=== PATIENT | female | born 1990 | race Two or more races ===

== ENCOUNTER → 2023-11-04 08:06 | Outpatient (CLI) | payer OTHER ==
[2023-11-04 09:10] LABS: HEMATOCRIT 32.1 % (36.0-45.00); HEMOGLOBIN 10.6 g/dL (12.0-15.00); MEAN CELL VOLUME 74.2 fL (80.00-100.00); MEAN CORPUSCULAR HEMOGLOBIN 24.5 pg (27.00-32.0); PLATELET COUNT 364 K/uL (150-450); RED BLOOD COUNT 4.33 M/uL (4.00-6.00); RED CELL DISTRIBUTION WIDTH 15.1 % (11.5-14.5)
[2023-11-04 09:15] LABS: PH,URINE 7.5 (5.0-8.0); URINE APPEARANCE Cloudy; URINE BACTERIA 3770.8 uL (0.0-1933); URINE BILIRRUBIN Negative (NEGATIVE); URINE BLOOD Negative; URINE COLOR Yellow; URINE EPITHELIAL CELLS 58.5 uL (0.0-38.8); URINE GLUCOSE Negative (NEGATIVE); URINE LEUKOCYTE Small; URINE NITRATE Negative; URINE PROTEIN Trace (NEGATIVE); URINE RBC 54.8 uL (0.0-20.8); URINE UROBILINOGEN 0.2 E.U./dl; URINE WBC 12.2 uL (0.0-23.2)
[2023-11-04 09:28] LABS: INR 1.04; PROTHROMBIN TIME 10.9 SECONDS (9.0-11.5)
[2023-11-04 09:46] LABS: ALBUMIN 3.5 gm/dL (3.4-5.0); BILIRUBIN TOTAL 0.35 mg/dL (0.3-1.2); CALCIUM 8.9 mg/dL (8.5-10.1); CREATININE SERUM 0.49 mg/dL (0.55-1.02); GFR 147.3; GLOBULINA 3.8 G/DL (2.4-3.5); POTASSIUM 3.78 mEq/L (3.5-5.1); TOTAL PROTEIN 7.3 gm/dL (6.4-8.2); TSH 2.34 uIU/mL (0.358-3.74)
[2023-11-04 12:20] LABS: RH POSITIVE
[2023-11-05 07:45] LABS: HEPATITIS C VIRUS ANTIBODY NON REACTIVE; RUBELLA IGG < 0.90
[2023-11-05 15:41] LABS: RAPID PLASMA REAGIN NONREACTIVE BY RPR (NONREACTIVE)
[2023-11-06 08:05] LABS: HSV I IGG TYPE SPECIFIC < 0.91; RUBELLA IGM <20.0
== END | disposition home or self-care (01) ==
LOC: LAB 08:06
PROVIDERS: ATTEND Obstetrics & Gynecology
DX: Z34.01 Encounter for supervision of normal first pregnancy, first trimester (principal)

== ENCOUNTER 2024-01-21 08:06 | Outpatient (CLI) | payer OTHER | END 2024-01-21 08:07 | disposition home or self-care (01) | LOC: PRENATAL 08:06 | PROVIDERS: ATTEND Obstetrics & Gynecology Maternal & Fetal Medicine | DX: O35.3XX0 Maternal care for (suspected) damage to fetus from viral disease in mother, not applicable or unspecified (principal); O44.00 Complete placenta previa NOS or without hemorrhage, unspecified trimester; Z3A.19 19 weeks gestation of pregnancy ==

== ENCOUNTER → 2024-03-13 06:35 | Outpatient (CLI) | payer OTHER ==
[2024-03-13 07:16] LABS: HEMATOCRIT 32.8 % (36.0-45.00); MEAN CELL VOLUME 78.3 fL (80.00-100.00); MEAN CORPUSCULAR HEMOGLOBIN 26.3 pg (27.00-32.0); MEAN CORPUSCULAR HGB CONC 33.7 g/dl (32.0-36.0); PLATELET COUNT 264 K/uL (150-450); RED BLOOD COUNT 4.19 M/uL (4.00-6.00); RED CELL DISTRIBUTION WIDTH 16.9 % (11.5-14.5)
[2024-03-13 07:16] LABS: PH,URINE 6.5 (5.0-8.0); URINE APPEARANCE Clear; URINE BILIRRUBIN Negative (NEGATIVE); URINE BLOOD Negative; URINE COLOR Yellow; URINE GLUCOSE Negative (NEGATIVE); URINE KETONE Negative (NEGATIVE); URINE LEUKOCYTE Trace; URINE NITRATE Negative; URINE PROTEIN Negative (NEGATIVE); URINE UROBILINOGEN 0.2 E.U./dl
[2024-03-13 07:20] LABS: URINE BACTERIA 1539.6 uL (0.0-1933); URINE EPITHELIAL CELLS 39.4 uL (0.0-38.8); URINE WBC 29.6 uL (0.0-23.2)
[2024-03-13 08:02] LABS: URINE CAST 0.15 uL (0.0-1.40)
== END | disposition home or self-care (01) ==
LOC: LAB 06:35
PROVIDERS: ATTEND Obstetrics & Gynecology
DX: Z34.02 Encounter for supervision of normal first pregnancy, second trimester (principal)

== ENCOUNTER 2024-04-17 08:41 | Outpatient (CLI) | payer OTHER | END 2024-04-17 08:42 | disposition home or self-care (01) | LOC: PRENATAL 08:41 | PROVIDERS: ATTEND Obstetrics & Gynecology Maternal & Fetal Medicine | DX: O26.849 Uterine size-date discrepancy, unspecified trimester (principal); O36.8199 Decreased fetal movements, unspecified trimester, other fetus; Z3A.34 34 weeks gestation of pregnancy ==

== ENCOUNTER → 2024-04-17 09:58 | Outpatient (CLI) | payer OTHER | END | disposition home or self-care (01) | LOC: LAB 09:58 | PROVIDERS: ATTEND Obstetrics & Gynecology | DX: N30.00 Acute cystitis without hematuria (principal) ==

== ENCOUNTER 2024-05-26 03:09 | Inpatient (IN) | payer OTHER ==
[2024-05-26] VITALS (7 sets, daily range): BP systolic 101–138; BP diastolic 51–75
[~2024-05-26] VITALS: Ht 165.1 cm; Wt 93.4 kg
[2024-05-26] MEDS ORDERED: RINGERS SOLUTION,LACTATED 1,000 ML IV SCH (03:15)
[2024-05-26] MEDS ORDERED: PRENATAL TABLE1 EAC1 PO (03:48)
[2024-05-26] MEDS ORDERED: IRON236 MG PO (03:48)
[2024-05-26 04:58] LABS: PH,URINE 6.5 (5.0-8.0); URINE APPEARANCE Clear; URINE BILIRRUBIN Negative (NEGATIVE); URINE BLOOD Negative; URINE COLOR Yellow; URINE GLUCOSE Negative (NEGATIVE); URINE KETONE Negative (NEGATIVE); URINE LEUKOCYTE Moderate; URINE NITRATE Negative; URINE PROTEIN Negative (NEGATIVE); URINE UROBILINOGEN 0.2 E.U./dl
[2024-05-26 05:02] LABS: HEMATOCRIT 37.8 % (36.0-45.00); HEMOGLOBIN 12.5 g/dL (12.0-15.00); MEAN CELL VOLUME 79.2 fL (80.00-100.00); MEAN CORPUSCULAR HEMOGLOBIN 26.1 pg (27.00-32.0); PLATELET COUNT 284 K/uL (150-450); RED BLOOD COUNT 4.77 M/uL (4.00-6.00); RED CELL DISTRIBUTION WIDTH 14.4 % (11.5-14.5)
[2024-05-26 05:03] LABS: URINE BACTERIA 2587.2 uL (0.0-1933); URINE RBC 17.3 uL (0.0-20.8); URINE WBC 15.6 uL (0.0-23.2)
[2024-05-26 05:12] LABS: INR < 0.93; PARTIAL THROMBOPLASTIN TIME 26.2 SECONDS (22.0-34.0); PROTHROMBIN TIME 9.8 SECONDS (9.0-11.5)
[2024-05-26 05:26] LABS: ALBUMIN 2.9 gm/dL (3.4-5.0); BILIRUBIN TOTAL 0.26 mg/dL (0.3-1.2); CALCIUM 9.1 mg/dL (8.5-10.1); CREATININE SERUM 0.49 mg/dL (0.55-1.02); GFR 146.35; GLOBULINA 3.7 G/DL (2.4-3.5); POTASSIUM 4.2 mEq/L (3.5-5.1); TOTAL PROTEIN 6.6 gm/dL (6.4-8.2)
[2024-05-26] MEDS ORDERED: MORPHINE SULFATE 4 MG/ML CARTRIDGE IV ONE (15:00)
[2024-05-26] MEDS ORDERED: TERBUTALINE SULFATE 1 MG/ML AMPUL ONE (16:09)
[2024-05-26] MEDS ORDERED: CEFOXITIN SODIUM 2,000 MG VIAL IV ONE (16:47)
[2024-05-26] MEDS ORDERED: OXYTOCIN 10 UNITS/ML VIAL ONE ×2 (16:59→19:27)
[2024-05-26] MEDS ORDERED: ERYTHROMYCIN BASE OPHT 1GM EACH TUBE OP ONE (16:59)
[2024-05-26] MEDS ORDERED: CEFOXITIN SODIUM 2,000 MG VIAL IV SCH (17:15)
[2024-05-26] MEDS ORDERED: METHYLERGONOVINE MALEATE 0.2 MG/ML AMPUL ONE (17:33)
[2024-05-26] MEDS ORDERED: TERBUTALINE SULFATE 1 MG/ML AMPUL IV ONE (17:45)
[2024-05-26] MEDS ORDERED: OXYTOCIN 1,000 ML IV SCH (18:15)
[2024-05-26] MEDS ORDERED: MORPHINE SULFATE 4 MG/ML CARTRIDGE IV PRN (18:15)
[2024-05-26] MEDS ORDERED: ONDANSETRON HCL 2 MG/ML VIAL IV PRN (18:15)
[2024-05-26] MEDS ORDERED: CHLORHEXIDINE GLUCONATE 120 ML BOTTLE TOP ONE (18:24)
[2024-05-26] MEDS ORDERED: MORPHINE SULFATE 4 MG/ML VIAL IV ONE ×2 (19:15→20:15)
[2024-05-26] MEDS ORDERED: SIMETHICONE 125 MG CAPSULE PO SCH (21:00)
[2024-05-26] MEDS ORDERED: MISOPROSTOL 25 MCG TABLET ONE (21:44)
[2024-05-27 00:09] LABS: HEMATOCRIT 37.6 % (36.0-45.00); HEMOGLOBIN 12.3 g/dL (12.0-15.00); MEAN CELL VOLUME 79.2 fL (80.00-100.00); MEAN CORPUSCULAR HGB CONC 32.8 g/dl (32.0-36.0); PLATELET COUNT 251 K/uL (150-450); RED BLOOD COUNT 4.74 M/uL (4.00-6.00); RED CELL DISTRIBUTION WIDTH 14.8 % (11.5-14.5)
[2024-05-27 02:03] VITALS: BP 106/60
[2024-05-27 09:00] VITALS: BP 105/63
[2024-05-27 09:01] VITALS: BP 105/63
[2024-05-27] MEDS ORDERED: NAPROXEN 500 MG TABLET PO PRN (10:30)
[2024-05-27] MEDS ORDERED: ACETAMINOPHEN WITH CODEINE 1 UDTAB TABLET PO PRN (10:30)
[2024-05-27] MEDS ORDERED: NAPROXEN 500 MG TABLET PO ONE (10:31)
[2024-05-27] MEDS ORDERED: DOCUSATE SODIUM 100MG CAP PO SCH (17:00)
[2024-05-27 20:25] VITALS: BP 106/69
[2024-05-28] VITALS: BP 107/71
[2024-05-28 08:00] VITALS: BP 113/78
[2024-05-28 12:00] VITALS: BP 125/65
[2024-05-28 16:00] VITALS: BP 107/70
[2024-05-28 20:00] VITALS: BP 129/78
[2024-05-29 00:27] VITALS: BP 110/74
[2024-05-29 08:00] VITALS: BP 117/57
[2024-05-29] MEDS ORDERED: NAPR500T14 PO (09:02)
[2024-05-29] MEDS ORDERED: Tylenol #3 PO (09:02)
== END 2024-05-29 14:46 | disposition home or self-care (01) | DRG 788 ==
LOC: LDR → OB/GYN 03:09
PROVIDERS: ADMIT Obstetrics & Gynecology; ATTEND Obstetrics & Gynecology
PROC: 4A1HXCZ Monitoring of Products of Conception, Cardiac Rate, External Approach (ICD-10-PCS; 2024-05-26)
PROC: 10D00Z1 Extraction of Products of Conception, Low, Open Approach (ICD-10-PCS; principal; 2024-05-26 18:00)
DX: O36.8130 Decreased fetal movements, third trimester, not applicable or unspecified (principal); O36.8330 Maternal care for abnormalities of the fetal heart rate or rhythm, third trimester, not applicable or unspecified; Z3A.38 38 weeks gestation of pregnancy; Z37.0 Single live birth

== ENCOUNTER 2024-09-04 09:51 | Outpatient (CLI) | payer OTHER ==
[~2024-09-04 09:51] MED LIST: IRON236 MG PO; NAPR500T14 PO; PRENATAL TABLE1 EAC1 PO; Tylenol #3 PO
[2024-09-04 10:37] LABS: HEMATOCRIT 38.2 % (36.0-45.00); HEMOGLOBIN 12.6 g/dL (12.0-15.00); MEAN CELL VOLUME 78.8 fL (80.00-100.00); PLATELET COUNT 322 K/uL (150-450); RED BLOOD COUNT 4.85 M/uL (4.00-6.00); RED CELL DISTRIBUTION WIDTH 14.7 % (11.5-14.5)
== END 2024-09-04 14:17 | disposition home or self-care (01) ==
LOC: LAB 09:51
PROVIDERS: ATTEND Obstetrics & Gynecology
DX: Z39.2 Encounter for routine postpartum follow-up (principal); I10 Essential (primary) hypertension

== ENCOUNTER → 2024-12-29 06:50 | Outpatient (CLI) | payer OTHER ==
[2024-12-29 07:45] LABS: URINE APPEARANCE Clear; URINE BILIRRUBIN Negative (NEGATIVE); URINE BLOOD Negative; URINE COLOR Yellow; URINE GLUCOSE Negative (NEGATIVE); URINE KETONE Trace (NEGATIVE); URINE LEUKOCYTE Moderate; URINE NITRATE Negative; URINE PROTEIN Negative (NEGATIVE); URINE UROBILINOGEN 0.2 E.U./dl
[2024-12-29 07:49] LABS: URINE BACTERIA 217.1 uL (0.0-1933); URINE EPITHELIAL CELLS 61.6 uL (0.0-38.8); URINE RBC 9.2 uL (0.0-20.8); URINE WBC 96.2 uL (0.0-23.2)
[2024-12-29 08:00] LABS: BASO % 0.7 % (0.1-1.2); EOS # 0.11 (0.04-0.54); EOS % 1.4 % (0.7-7.0); LYMPH # 2.41 (1.18-3.74); LYMPH % 29.8 % (19.3-53.1); MEAN PLATELET VOLUME 9.80 fl (9.4-12.4); MONO # 0.67 (0.24-0.82); MONO % 8.3 % (4.7-12.5); NEUT # 4.81 (1.56-6.13); NEUT % 59.3 % (34.0-71.1); RED CELL DISTRIBUTION WIDTH 13.8 % (11.6-14.4)
[2024-12-29 08:12] LABS: ALT/SGPT 15.0 U/L (12-78); AST/SGOT 10.0 U/L (15-37); BILIRUBIN TOTAL 0.5 mg/dL (0.3-1.2); BUN CREA RATIO 23.0 (7.0-25.0); CHOL HDL RATIO 2.6 (0-5.0); CREATININE SERUM 0.56 mg/dL (0.55-1.02); GFR 124.67; GLOBULINA 3.9 G/DL (2.4-3.5); GLUCOSE FASTING 74.0 mg/dL (65-100); HDL 73.0 mg/dl (40-60); LDL 111.0 mg/dl (0-130); OSMOLALITY SERUM 284.0 MOSM/KG (275-295); T4 FREE 1.03 NG/ML (0.76-1.46); TSH 2.14 uIU/mL (0.358-3.74); VLDL 6.0 (0-39)
[2024-12-29 08:18] LABS: URINE CAST 0.29 uL (0.0-1.40)
[2024-12-29 08:19] LABS: TYPE CELLS SQUAMOUS
== END | disposition home or self-care (01) ==
LOC: LAB 06:50
PROVIDERS: ATTEND Obstetrics & Gynecology
DX: I10 Essential (primary) hypertension (principal); E03.9 Hypothyroidism, unspecified; E66.9 Obesity, unspecified; E55.9 Vitamin D deficiency, unspecified